=== PATIENT | male | born 1970 | race Caucasian/White ===

== ENCOUNTER 2021-06-26 04:02 | Outpatient (CLI) | payer SELFPAY ==
[2021-06-26 13:48] LABS: Calculated LDL 114 mg/dL (<100); Cholesterol 199 mg/dL (<200); HDL Cholesterol 66 mg/dL (40-60); Triglyceride 95 mg/dL (<150)
[2021-06-27 10:58] LABS: HBs Antibody, Quant <3.1 mIU/mL (See Note); Hepatitis B Surface Ab Negative (See Note)
[2021-06-27 11:12] LABS: Hepatitis B Surface Ag Negative (Negative)
[2021-06-27 11:50] LABS: HIV-1/2 Ag & Ab Screen Negative (Negative)
[2021-06-27 17:30] LABS: CREATININE 0.9 mg/dL (0.70-1.30)
== END 2021-06-26 04:03 | disposition home or self-care (01) ==
LOC: LBO 04:02
PROVIDERS: PCP Internal Medicine; Visit Provider Internal Medicine
DX: Z13.220 Encounter for screening for lipoid disorders (principal); Z11.4 Encounter for screening for human immunodeficiency virus [HIV]; Z11.59 Encounter for screening for other viral diseases
CPT/HCPCS: 36415; 80061; 86706; 87340; 87389; 82565

== ENCOUNTER 2023-04-10 12:34 | Outpatient (CLI) | payer SELFPAY ==
[2023-04-10 11:31] LABS: ALT 45 U/L (16-63); AST 37 U/L (15-37); Albumin 3.9 g/dL (3.4-5.0); Alkaline Phosphatase 115 U/L (46-116); Anion Gap 8.3 mmol/L (3-11); BUN 18 mg/dL (7-18); Bilirubin, Total 0.3 mg/dL (0.2-1.0); CO2 27.7 mmol/L (21.0-32.0); CREATININE 0.9 mg/dL (0.70-1.30); Calcium 9.6 mg/dL (8.5-10.1); Calculated LDL 109 mg/dL (<100); Chloride 102 mmol/L (98-107); Cholesterol 195 mg/dL (<200); Glucose 117 mg/dL (74-106); HDL Cholesterol 69 mg/dL (40-60); Potassium 4.1 mmol/L (3.5-5.1); Sodium 138 mmol/L (136-145); Total Protein 8.5 g/dL (6.4-8.2); Triglyceride 85 mg/dL (<150)
== END 2023-04-10 12:35 | disposition home or self-care (01) ==
LOC: LBO 12:35
PROVIDERS: PCP Family Medicine; Visit Provider Family Medicine
DX: Z13.220 Encounter for screening for lipoid disorders (principal)
CPT/HCPCS: 36415; 80053; 80061

== ENCOUNTER 2023-11-20 23:58 | Emergency (ER) | payer SELFPAY ==
--- NOTE | 2023-11-21 | RT.EKG_ITS ---
APPROVED REPORT Exam: Resting ECG Reason for Exam: SOB Patient Location: E HR:53 bpm ECG Measurements Heart Rate 53 AXIS AK 168 P 56 QRSd 103 QRS 76 QT 440 T 63 QTc 410 Conclusion Sinus bradycardia...rate< 60 Atrial premature complex...SV complex w/ short R-R interval no ST segment or T wave abnormalities to suggest occlusive [place]
[2023-11-21 00:01] VITALS: BP 117/86; PULSE 68; RESP 16; TEMP 36.1
--- NOTE | 2023-11-21 00:15 | DI.RAD_ITS ---
Exam(s) XR CHEST 2V PA LATERAL EXAM: XR CHEST 2V PA LATERAL CLINICAL HISTORY: COVD +, SOB TECHNIQUE: 2D digital imaging was performed of the chest. Three images were obtained. PA and later al views were obtained. COMPARISON: CR LEFT SHOULDER COMPLETE from 03/05/2017 FINDINGS: MEDIASTINUM: Normal. HEART: Normal. PULMONARY VASCULATURE: Normal. LUNGS: Clear. PLEURAL SPACE: No pleural effusion or pneumothorax. BONE:Within normal limits for the patient's age. OTHER FINDINGS:Normal. IMPRESSION: No acute pulmonary findings. DATA REPOSITORY: RADIATION DOSE DELIVERED:
--- NOTE | 2023-11-21 00:27 | W.ED.GENAD ---
HPI General Mode of arrival: ambulatory. Date/Time Provider Initiated Documentation: 11/21/23 00:09. Limitations to Documentation: no limitations. Information obtained by: patient. HPI Narrative: 53yo previously healthy male presenting for shortness of breath and nausea. Began to feel unwell yesterday, body aches, chills, cough. Home COVID test positive this morning. Today frequently dry heaving. Occasional vomiting, nonbloody nonbilious. Continued cough and shortness of breath, feels pain with deep breathing. Constant dull burning substernal chest pain for the past 4-5 hours. No fevers, rash, abdominal pain, dysuria, hematuria, LE edema, or other concerns. Did get covid vaccine; has not had most recent version. Related Data Home Medications Medication Instructions Recorded Confirmed ibuprofen 200 mg capsule 400 mg PO Q6H PRN 05/19/19 07/30/23 fluoxetine 20 mg capsule 20 mg PO DAILY #90 caps 12/21/22 07/30/23 metronidazole 0.75 % topical cream 1 applic topical QHS #45 grams 12/21/22 07/30/23 lorazepam 0.5 mg tablet 0.5 mg PO BID PRN anxiety #30 tabs 07/30/23 07/30/23 nirmatrelvir 300 mg (150 mg See Rx Instructions PO .COMPLEX 11/21/23 x2)-ritonavir 100 mg tablet,dose #30 dose pk pack (Paxlovid) ondansetron 4 mg disintegrating 4 mg PO Q8H PRN #14 tabs 11/21/23 tablet Previous Rx's Medication Instructions Recorded fluoxetine 20 mg capsule 20 mg PO DAILY #90 caps 12/21/22 metronidazole 0.75 % topical cream 1 applic topical QHS #45 grams 12/21/22 lorazepam 0.5 mg tablet 0.5 mg PO BID PRN anxiety #30 tabs 07/30/23 nirmatrelvir 300 mg (150 mg See Rx Instructions PO .COMPLEX 11/21/23 x2)-ritonavir 100 mg tablet,dose #30 dose pk pack (Paxlovid) ondansetron 4 mg disintegrating 4 mg PO Q8H PRN #14 tabs 11/21/23 tablet Allergies Allergy/AdvReac Type Severity Reaction Status Date / Time latex AdvReac Mild red/irritat Verified 07/30/23 08:42 ed/itchy Tobacco Smoke Allergy Severe Anaphylaxis Uncoded 07/30/23 08:42 Pet Dander Allergy Mild Other (See Uncoded 07/30/23 08:42 Comment) General Stated Complaint: SOB MURALI: 3 Review of Systems Narrative: see HPI Exam Narrative Exam Narrative: General: Alert, non-toxic Head: Normocephalic, atraumatic Neck: Trachea midline, ?Neck supple. ENT: ?MMM.? Cardiac: ?RRR, no murmurs appreciated Resp: No respiratory distress. CTAB. Abd: ?Soft, non-distended, nontender : ?No suprapubic tenderness. Extremities: ?No deformities.? No peripheral edema. Neurologic: GCS 15. ? Moves all extremities freely against gravity Course Vital Signs Vital signs: Vital Signs Temperature 36.1 C L 11/21/23 00:01 Pulse 68 11/21/23 00:01 Respiratory Rate 16 11/21/23 00:01 Blood Pressure 117/86 11/21/23 00:01 Temperature 36.1 C L 11/21/23 00:01 Temperature Source Temporal Artery Scan 11/21/23 00:01 Pulse 68 11/21/23 00:01 Respiratory Rate 16 11/21/23 00:01 Respiratory Effort Normal 11/21/23 00:07 Respiratory Depth Normal 11/21/23 00:07 Respiratory Pattern Normal 11/21/23 00:07 Blood Pressure 117/86 11/21/23 00:01 Blood Pressure Position Supine 11/21/23 00:01 Oxygen Delivery Method Room Air 11/21/23 00:01 Oxygen Flow Rate 0 11/21/23 00:01 Pain Level 8 11/21/23 00:01 Medical Decision Making 53yo previously healthy male presenting for shortness of breath and nausea. Yesterday body aches, chills, cough. This morning positive home COVID test. Today frequent dry heaving, occasional vomiting, ongoing shortness of breath and pain with deep breathing. Also dull constant burning substernal chest pain. Normal vital signs on arrival. No respiratory distress, lungs CTAB. Appears well perfused and well hydrated on exam. Not septic. Not Boerhaave's. Suspect chest pain more likely d/t N/V given timing and character however ACS is possible. Will evaluate for acute cardiopulmonary processes with labs and imaging. Benign abdominal exam, not concerned for acute intrabdominal process, no indication for CT imaging of abd/pelvis. -EKG NSR, no ST segment or T wave abnormalities to suggest occlusive [place] -CXR independently reviewed, no focal pneumonia or pneumothorax on my view, agree with radiology read below -Labs reviewed as below, CBC reassuring with no leukocytosis or anemia, CMP with no significant abnormalities, troponin negative in the setting of 4+ hours of constant pain (would not further pursue ACS). Given report of pleuritic pain (though low suspicion for PE given no hypoxia or tachycardia), d-dimer sent and elevated. CTA for PE independently reviewed, no large pulmonary embolism on my view, agree with radiology read below. -Given tylenol, toradol, zofran, IVFB for symptoms. Age >50, qualifies for paxlovid On reassessment patient able to tolerate PO fluids. Reports feeling much improved, was able to fall asleep for a little bit. Vital signs remain reassuring. 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 Prescriptions for zofran and paxlovid sent to pharmacy. Discharged home; discharge instructions and return precautions were reviewed with patient who verbalized understanding. All questions were answered and he is in full agreement with the plan. Imaging Data Radiologic Study: Imaging: X-Ray Radiologist's impression: IMPRESSION: No active disease is seen in the chest. Radiologic Study #2: Imaging: CT Scan Radiologist's impression: IMPRESSION: No active disease is seen in the chest. Lab Data Lab results reviewed: Yes I reviewed the patient's lab results. Labs: Laboratory Tests Range/Units 11/21/23 00:40 WBC (4.4-10.8) 10^3/uL 9.96 RBC (4.36-5.78) 10^6/uL 5.13 Hgb (13.5-17.5) g/dL 15.0 Hct (40.0-50.0) % 44.1 MCV (80-95) fL 86 MCH (27.0-33.0) pg 29.2 MCHC (32.0-36.0) % 34.0 RDW (11.8-14.1) % 12.9 Plt Count (130-400) 10^3/uL 206 MPV (8.0-11.0) fL 10.4 Immature Gran % 0.3 Neutrophils % 77.8 Lymphocytes % 12.3 Monocytes % 9.0 Eosinophils % 0.1 Basophils % 0.5 Nucleated RBC % (0.0-0.3) % 0.0 Absolute Neutrophils (1.2-6.7) 10^3/uL 7.74 H Absolute Lymphocytes (1.2-3.4) 10^3/uL 1.23 Absolute Monocytes (0.1-0.8) 10^3/uL 0.90 H Absolute Eosinophils (0.0-0.7) 10^3/uL 0.01 Absolute Basophils (0.0-0.2) 10^3/uL 0.05 D-Dimer (<500) ng/mlFEU 893 H Sodium (136-145) mmol/L 135 L Potassium (3.5-5.1) mmol/L 3.8 Chloride (98-107) mmol/L 101 Carbon Dioxide (21.0-32.0) mmol/L 20.4 L Anion Gap (3-11) mmol/L 13.6 H BUN (7-18) mg/dL 17 Creatinine (0.70-1.30) mg/dL 1.1 Est GFR (CKD-EPI 2020) (mL/min/1.73m2) 80.77 Glucose (74-106) mg/dL 153 H Calcium (8.5-10.1) mg/dL 9.1 Total Bilirubin (0.2-1.0) mg/dL 0.4 AST (15-37) U/L 43 H ALT (16-63) U/L 41 Alkaline Phosphatase (46-116) U/L 88 Troponin I (< or =60) ng/L < 50 Total Protein (6.4-8.2) g/dL 7.8 Albumin (3.4-5.0) g/dL 3.9 Quality:SDOH Health Related Social Needs: No Data to Display PFSH All Active Problems (Updated 11/21/23 @ 01:24 by Mary Jane Jimenez MD) COVID-19 (Acute) Leukoplakia of larynx (Acute) Rosacea (Acute) Encounter for screening for malignant neoplasm of colon (Acute) Anxiety (Acute 02/23/14) Fluoxetine begun 02/24/14 Surgical History Appendectomy Family History Mother ETOH abuse Social History (Updated 07/30/23 @ 09:04 by Sylwia Jacome) Smoking/Tobacco Use Status: Never Smoking risk assessment performed?: Yes Alcohol Intake: current Alcohol Intake frequency: holidays/special occasions only Drug use: Socially Substance use type: marijuana Adopted: No Caregiver/Support person: Yes Foster care: No Household members: significant other and family Housing: house Number of Children: 0 number of grandchildren: 0 Communication Needs: None Education Level: vocational Do you need help understanding health information?: Often 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 - [employer] Pets and animals: Yes (1) Pets and animals: dog(s) Sexually active: Yes Current gender identity: male What is your relationship status?: living with partner How often do you talk on the phone with friends or family?: once per week How often do you get together with friends or relatives?: once per week Do you belong to any clubs or organized social groups?: no Panel score (0-1 are the most socially isolated patients): 1 What type of physical activity do you participate in: walking and other Details: resistance training Duration: < 15 minutes/day Frequency: 1-2 times per week Special steven needs: No Seatbelt use: always Helmet use: Yes Helmet use: always 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 heavy: No Working smoke detector in home: Yes Fire extinguisher in home: Yes Carbon monox detector in home: Yes Do you feel safe at home: Yes Do you feel safe in your relationship?: Yes Discharge Plan Disposition Patient Disposition: Home Condition: Good Discharge Details Clinical Impression: COVID-19 Primary Care Provider: Alec Schmidt ED Provider: Mary Jane Jimenez Home Meds and New Rx's Prescriptions: New ondansetron 4 mg tablet,disintegrating 4 mg PO Q8H PRNQty: 14 0RF Paxlovid 300 mg (150 mg x 2)-100 mg tablets,dose pack See Rx Instructions .ROUTE .COMPLEX Qty: 30 0RF Rx Instructions: take TWO 150 mg tablets of nirmatrelvir with ONE 100 mg tablet of ritonavir twice daily for 5 days Continued metronidazole 0.75 % cream 1 applic topical QHS Qty: 45 3RF fluoxetine 20 mg capsule 20 mg PO DAILY MDD 30 mg Qty: 90 3RF ibuprofen 200 mg capsule 400 mg PO Q6H PRN Patient Comments: uses only prn. lorazepam 0.5 mg tablet 0.5 mg PO BID PRN (Reason: anxiety) Qty: 30 0RF Discontinued fluoxetine 10 mg capsule 10 mg PO DAILY MDD 30 mg Qty: 90 3RF Discharge Instructions Instructions: Viral Syndrome (ED), COVID-19 (Coronavirus Disease 2019) (ED) Additional Instructions: Tylenol & ibuprofen over the counter for body aches/pain/fever; follow the directions on the bottle. Zofran up to every 8 hours as needed for nausea and vomiting. Take the paxlovid you were prescribed twice a day for the next 5 days- follow the directions on the package. Call your primary care doctor today to schedule an appointment to be seen to followup on your visit here. Return to the emergency department for new or worsening symptoms. Referrals: Alec Schmidt DO [Primary Care Provider] -
[2023-11-21 00:46] LABS: Abs Immature Grans 0.03 10^3/uL (0.0-0.06); Absolute Basophil Count 0.05 10^3/uL (0.0-0.2); Absolute Eosinophil Count 0.01 10^3/uL (0.0-0.7); Absolute Lymphocyte Count 1.23 10^3/uL (1.2-3.4); Absolute Neutrophil Count 7.74 10^3/uL (1.2-6.7); Basophils % 0.5; Eosinophils % 0.1; HCT 44.1 % (40.0-50.0); Immature Grans % 0.3; Lymphocytes % 12.3; MCH 29.2 pg (27.0-33.0); MCV 86 fL (80-95); MPV 10.4 fL (8.0-11.0); Neutrophils % 77.8; Platelet Count 206 10^3/uL (130-400); RBC 5.13 10^6/uL (4.36-5.78); RDW 12.9 % (11.8-14.1); RDW-SD 40.6 fL; WBC 9.96 10^3/uL (4.4-10.8)
[2023-11-21] MEDS: Normal Saline 1,000 ML 1000 ML IV (00:46)
[2023-11-21] MEDS: Ketorolac 15 MG/ML VIAL IV (00:46)
[2023-11-21] MEDS: Ondansetron 4 MG/2 ML VIAL IVP (00:47)
[2023-11-21 01:09] LABS: ALT 41 U/L (16-63); AST 43 U/L (15-37); Albumin 3.9 g/dL (3.4-5.0); Alkaline Phosphatase 88 U/L (46-116); Anion Gap 13.6 mmol/L (3-11); BUN 17 mg/dL (7-18); Bilirubin, Total 0.4 mg/dL (0.2-1.0); CO2 20.4 mmol/L (21.0-32.0); CREATININE 1.1 mg/dL (0.70-1.30); Calcium 9.1 mg/dL (8.5-10.1); Chloride 101 mmol/L (98-107); Estimated GFR 80.77 (mL/min/1.73m2); Glucose 153 mg/dL (74-106); Potassium 3.8 mmol/L (3.5-5.1); Sodium 135 mmol/L (136-145); Total Protein 7.8 g/dL (6.4-8.2); Troponin I < 50 ng/L (< or =60)
--- NOTE | 2023-11-21 01:15 | DI.CT_ITS ---
Exam(s) CT CHEST PE CTA EXAM: CT CHEST PE CTA CLINICAL HISTORY: +dimer, pleuritic pain. TECHNIQUE: Imaging Protocol: Axial CT angiography was performed with multi-slice acquisition and mu lti-planar and/or 3D reconstructions. CONTRAST MATERIAL: Intravenous: Omnipaque 350 contrast volume:100 mL COMPARISON: CR,XR XR CHEST 2V PA LATERAL from 11/21/2023 FINDINGS: Tracheobronchial tree: Patent where visualized. Pulmonary parenchyma: No consolidation or dominant measurable mass. No architectural distortion. Pulmonary Arteries: No evidence of filling defect to suggest pulmonary emboli. Mediastinum and Carla: No dominant adenopathy or fluid collection. The esophagus is unremarkable. Visualized thyroid gland: Unremarkable. Pleura: No effusion or pneumothorax. Heart: The heart is not dilated. No coronary artery calcifications are seen. No pericardial effusion. Aorta: Thoracic aorta non-dilated. No evidence of dissection. Mild atherosclerosis. Upper abdomen: Unremarkable. Soft tissues: Unremarkable. Bones: Within normal limits for the patient's age. IMPRESSION: No evidence of pulmonary embolism, thoracic aortic dissection or aneurysm. RADIATION DOSE DELIVERED: 313.95mGy.cm Total DLP DATA REPOSITORY: All CT scans at this facility are submitted to the National Radiology Data Registry (NRDR) Dose Index Registry (DIR) with the [employer] (ACR). RADIATION OPTIMIZATION: All CT scans at this facility use at least one of these dose optimization te chniques: automated exposure control; mA and/or kV adjustment per patient size (includes targeted exa ms where dose is matched to clinical indication); or iterative reconstruction.
--- NOTE | 2023-11-21 01:18 | DI.VRAD_ITS ---
PROCEDURE INFORMATION: Exam: XR Chest Exam date and time: 11/21/2023 12:59 AM Age: 53 years old Clinical indication: Shortness of breath; Additional info: Covid+ , SOB TECHNIQUE: Imaging protocol: Radiologic exam of the chest. Views: 2 views. COMPARISON: CR LEFT SHOULDER COMPLETE 03/05/2017 9:07 AM FINDINGS: Lungs: No pulmonary consolidation is seen. Pleural spaces: No pleural effusion or pneumothorax is demonstrated. Heart/Mediastinum: The heart appears normal in size. Bones/joints: The visualized bony structures appear grossly intact IMPRESSION: No active disease is seen in the chest. Dictated and Authenticated by: Leo Regalado MD. Ordering:REESE Hinton MD
[2023-11-21 01:22] LABS: D-Dimer 893 ng/mlFEU (<500)
[2023-11-21] MEDS: Acetaminophen 325 MG TAB 650 MG PO (01:40)
[2023-11-21] MEDS: Omnipaque 350 MG/ML 100 ML BTL IJ (02:14)
[2023-11-21] MEDS: Normal Saline - Diluent 50 ML VIAL IJ (02:15)
[2023-11-21] MEDS: Normal Saline Flush 10 ML SYR IVP (02:16)
[2023-11-21] MEDS: Droperidol 5 MG/2 ML VIAL 1.25 MG IVP (02:27)
--- NOTE | 2023-11-21 02:47 | DI.VRAD_ITS ---
PROCEDURE INFORMATION: Exam: CTA Chest With Contrast Exam date and time: 11/21/2023 1:58 AM Age: 53 years old Clinical indication: Pain; Shortness of breath; Pleuordynia; Additional info: Covid +, + ddimer, pleuritic pain TECHNIQUE: Imaging protocol: Computed tomographic angiography of the chest with contrast. Exam focused on the arteries. 3D rendering (Not supervised by radiologist): MIP and/or 3D reconstructed images were created by the technologist. Contrast material: OMNI 350; Contrast volume: 100 ml; Contrast route: INTRAVENOUS (IV); COMPARISON: CR XR CHEST 2V PA LATERAL 11/21/2023 12:59 AM FINDINGS: Pulmonary arteries: No pulmonary embolism identified. Aorta: No thoracic aortic aneurysm or dissection. Thyroid: Normal-sized thyroid gland. Lungs: No pulmonary consolidation. Pleural spaces: No pleural effusion or pneumothorax. Heart: Top-normal sized heart. Lymph nodes: No pathologically enlarged mediastinal or hilar lymph nodes. Bones/joints: Lower ribs partially excluded from view and incompletely evaluated. Otherwise, no acute fracture seen among the bones of the chest. Spinal degenerative change with small anterior osteophytes at multiple levels. Soft tissues: No gross soft tissue mass or fluid collection seen in the chest wall. IMPRESSION: No active disease is seen in the chest. Dictated and Authenticated by: Leo Regalado MD. Ordering:REESE Hinton MD
[2023-11-21 02:57] VITALS: BP 132/68; PULSE 75; RESP 16; TEMP 36.1; O2SAT 99
--- NOTE | 2023-11-21 13:26 | NUR.NOTE ---
[facility] called this morning and stated that they do not have Paxlovid and are unable to get it.Nursing Note:
== END 2023-11-21 02:57 | disposition home or self-care (01) ==
LOC: ER 11-21 03:00
PROVIDERS: Emergency Provider Student in an Organized Health Care Education/Training Program; PCP Family Medicine
DX: U07.1 COVID-19 (principal); R07.9 Chest pain, unspecified; R94.31 Abnormal electrocardiogram [ECG] [EKG]
CPT/HCPCS: 36415; 71275; 80053; 93005; 96361; 96374; 96375; 99285; 71046; 84484; 85025; 85379; 93010; 99284; J1790; J1885; J2405; J3490

== ENCOUNTER 2023-11-26 16:34 | Outpatient (REF) | payer SELFPAY ==
[2023-11-26 20:32] LABS: Abs Immature Grans 0.03 10^3/uL (0.0-0.06); Absolute Basophil Count 0.07 10^3/uL (0.0-0.2); Absolute Eosinophil Count 0.07 10^3/uL (0.0-0.7); Absolute Lymphocyte Count 2.12 10^3/uL (1.2-3.4); Absolute Neutrophil Count 7.67 10^3/uL (1.2-6.7); Basophils % 0.6; Eosinophils % 0.6; HCT 43.8 % (40.0-50.0); HGB 15.1 g/dL (13.5-17.5); Immature Grans % 0.3; Lymphocytes % 19.3; MCH 29.3 pg (27.0-33.0); MCHC 34.5 % (32.0-36.0); MCV 85 fL (80-95); MPV 10.8 fL (8.0-11.0); Monocytes % 9.5; Neutrophils % 69.7; Platelet Count 252 10^3/uL (130-400); RBC 5.16 10^6/uL (4.36-5.78); RDW 12.4 % (11.8-14.1); RDW-SD 38.8 fL
[2023-11-26 20:37] LABS: Absolute Monocyte Count 1.05 10^3/uL (0.1-0.8)
[2023-11-26 20:51] LABS: ALT 61 U/L (16-63); AST 37 U/L (15-37); Albumin 3.8 g/dL (3.4-5.0); Alkaline Phosphatase 88 U/L (46-116); Amylase 47 U/L (25-115); Anion Gap 13.8 mmol/L (3-11); BUN 19 mg/dL (7-18); Bilirubin, Total 0.7 mg/dL (0.2-1.0); CO2 22.2 mmol/L (21.0-32.0); CREATININE 0.9 mg/dL (0.70-1.30); Calcium 9.5 mg/dL (8.5-10.1); Chloride 101 mmol/L (98-107); Estimated GFR 102.76 (mL/min/1.73m2); Glucose 97 mg/dL (74-106); Lipase 35 U/L (16-77); Potassium 4.3 mmol/L (3.5-5.1); Sodium 137 mmol/L (136-145); Total Protein 7.5 g/dL (6.4-8.2)
== END 2023-11-26 16:35 | disposition home or self-care (01) ==
LOC: LBN 16:34
PROVIDERS: PCP Family Medicine; Visit Provider Nurse Practitioner Family
DX: R10.9 Unspecified abdominal pain (principal); F41.8 Other specified anxiety disorders; R11.2 Nausea with vomiting, unspecified; K21.9 Gastro-esophageal reflux disease without esophagitis; U07.1 COVID-19
CPT/HCPCS: 80053; 83690; 82150; 84443; 85025